=== PATIENT | male | born 1960 | race Caucasian/White ===

== ENCOUNTER 2017-09-08 14:15 | Emergency (ER) | payer OTHER ==
[~2017-09-08] VITALS: Ht 180.3 cm; Wt 102.1 kg
[2017-09-08 14:19] VITALS: BP 134/88
[2017-09-08] MEDS ORDERED: KETOROLAC 30 MG/1 ML ONE (15:23)
[2017-09-08] MEDS ORDERED: METHOCARBAMOL 750 MG TABLET ONE (15:23)
[2017-09-08] MEDS ORDERED: PLEASE ENTER ALLERGIES MC SCH (15:30)
[2017-09-08] MEDS ORDERED: METHOCARBAMOL 750 MG TABLET PO ONE (15:30)
[2017-09-08] MEDS ORDERED: KETOROLAC 30 MG/1 ML IM ONE (15:30)
== END 2017-09-08 16:02 | disposition home or self-care (01) ==
LOC: ED 15:56
DX: M54.42 Lumbago with sciatica, left side (principal)
CPT/HCPCS: 72110; 96372; 99284; J1885